=== PATIENT | female | born 1980 | race Caucasian/White ===

== ENCOUNTER → 2019-05-10 | Outpatient (CLI) | payer BC ==
--- NOTE | 2019-05-10 09:31 | KCIC ---
Examination: ABDOMEN LTD History: Right upper quadrant pain Comparison/Correlation: None Findings: Ultrasound examination of right upper quadrant was performed. Proximal pancreas is normal. Distal pancreas is obscured by bowel gas. Diffuse fatty infiltration of liver noted. Liver length is 19.4 cm. Common bile duct measures 0.2 cm diameter. Gallbladder is normal with no cholelithiasis. Wall thickness of up to 0.2 cm noted. Right kidney measures 10.9 cm x 4.7 cm x 5.9 cm. No right hydronephrosis. Right renal cortical echotexture and contour are unremarkable. Inferior vena cava is unremarkable. Abdominal aorta is normal in diameter measuring up to 2.1 cm proximally. Impression: Hepatomegaly. Fatty infiltration of the liver. No evidence of cholelithiasis or cholecystitis. No biliary dilatation. Electronically signed by: Dionicio Segura MD (05/10/2019 9:28 AM) [facility]
== END | disposition home or self-care (01) ==
LOC: KCIC US 08:43
PROVIDERS: ATTEND Nurse Practitioner Family
DX: K76.0 Fatty (change of) liver, not elsewhere classified (principal); R16.0 Hepatomegaly, not elsewhere classified
CPT/HCPCS: 76705